=== PATIENT | male | born 1975 | race Caucasian/White ===

== ENCOUNTER → 2019-01-19 | Outpatient (CLI) | payer BC ==
[~2019-01-19] MED LIST: REGADENOSON 0.4 MG/5 ML DISP.SYRIN. IV ONE
--- NOTE | 2019-01-19 14:22 | PCVCIMAG ---
APPROVED REPORT Study performed: 01/19/2019 07:43:50 EXAM: Comprehensive 2D, Doppler, and color-flow Echocardiogram Patient Location: Echo lab Status: routine BSA: 2.29 HR: 60 bpmBP: 142/100 mmHg Rhythm: NSR Other Information Study Quality: Adequate Risk Factors: Cardiac Risk Factors: HTN Indications Palpitations Syncope 2D Dimensions IVSd: 12.22 (7-11mm) LVDd: 41.90 mm PWd: 10.94 (7-11mm)Ascending Ao: 29.07 (22-36mm) LVDs: 35.10 (25-40mm) Left Atrium: 38.57 (27-40mm) Aortic Root: 30.68 mm LV Single Plane 4CH: 52.68 % LV Single Plane 2CH: 53.73 % Biplane EF: 54.3 % Volumes Left Atrial Volume (Systole) Single Plane 4CH: 76.58 mLSingle Plane 2CH: 95.38 mL LA ESV Index: 38.00 mL/m2 Aortic Valve AoV Peak Angelo.: 1.56 m/s AO Peak Gr.: 9.67 mmHgLVOT Max P.40 mmHg LVOT Max V: 1.05 m/s Mitral Valve E/A Ratio: 1.4 MV Decel. Time: 237.92 ms MV E Max Angelo.: 0.80 m/s MV A Angelo.: 0.59 m/s IVRT: 93.43 ms Pulmonary Valve PV Peak Angelo.: 1.16 m/sPV Peak Gr.: 5.42 mmHg Pulmonary Vein P Vein S: 0.48 m/sP Vein A: 0.39 m/s P Vein D: 0.56 m/sP Vein A Dur.: 173.0 msec P Vein S/D Ratio: 0.86 Tricuspid Valve TR Peak Angelo.: 2.60 m/s TR Peak Gr.: 27.02 mmHg Left Ventricle The left ventricle is normal size. There is normal LV segmental wall motion. Borderline concentric left ventricular hypertrophy. Left ventricular systolic function is normal. The left ventricular ejection fraction is within the normal range. LVEF is 50-55%. Grade I - abnormal relaxation pattern. Right Ventricle The right ventricle is normal size. The right ventricular systolic function is normal. Atria Left atrium is mildly dilated. Right atrium is mildly dilated. Aortic Valve The aortic valve is normal in structure. No aortic regurgitation is present. There is no aortic valvular stenosis. Mitral Valve The mitral valve is normal in structure. Mild mitral regurgitation. No evidence of mitral valve stenosis. Tricuspid Valve The tricuspid valve is normal in structure. Mild tricuspid regurgitation with PAP of 34 mmHg. Pulmonic Valve The pulmonary valve is normal in structure. There is no pulmonic valvular regurgitation. Great Vessels The aortic root is normal in size. IVC is normal in size and collapses >50% with inspiration. Pericardium There is no pericardial effusion. There is no pleural effusion. <Conclusion> The left ventricle is normal size. LVEF is 50-55%. Left atrium is mildly dilated. Right atrium is mildly dilated. The aortic valve is normal in structure. The mitral valve is normal in structure. Mild mitral regurgitation. The tricuspid valve is normal in structure. Mild tricuspid regurgitation with PAP of 34 mmHg. The pulmonary valve is normal in structure. There is no pericardial effusion.
--- NOTE | 2019-01-20 15:11 | PCVCIMAG ---
APPROVED REPORT Imaging Protocol: Rest Tc-99m/Stress Tc-99m 1 day Study performed: 01/19/2019 09:15:49 Indication: Chest pain, Palpitations, Dyspnea, Syncope Patient Location: Out-Patient Stress Nurse: Supriya Hair RN, Nancy Mahan RN OR Tech:Dick SanchezLEOPOLDO Ht: 5 ft 11 in Wt: 244 lbs BSA: 2.29 m2 HR: 55 bpm BP: 131/94 mmHg BMI: 34.0 Rhythm: Sinus Bradycardia, Intraventricular Delay Medical History Medical History: HTN, Former Smoker Medications: HCTZ, Lisinopril, Protonix Allergies: No known drug allergies Exercise History: Indeterminate Physical Disabilities: Hips Resting Data Rest SPECT myocardial perfusion imaging was performed in supine position 45 minutes following the intravenous injection of 11.9 mCi of Tc-99m Sestamibi. Time of rest injection: 834 Date: 01/19/2019 Administration Route: IV Administration Site: Right AC Pharmacologic Stress Pharmacologic stress test was performed by injecting Regadenoson 0.4 mg IV push over 10-15 seconds immediately followed by the intravenous injection of 32.7 mCi of Tc-99m Sestamibi. Time of stress injection: 944 Date: 01/19/2019 Administration Route: IV Administration Site: Right AC Gated Stress SPECT was performed 45 minutes after stress injection. The images were gated to evaluate regional wall motion and calculate left ventricular ejection fraction. Stress Test Details Stress Test: Pharmacologic stress testing performed using 0.4 mg of regadenoson per 5 mL given IV over 10 seconds. Reason for pharmacologic stress test: Hip issues. HRMax Heart Rate (APMHR): 177 bpm Resting HR: 55 bpmTarget HR (85% APMHR): 150 bpm Max HR Achieved: 113 bpm % of APMHR: 63 Recovery HR: 83 bpm BP Resting BP: 131/94 mmHg Max BP: 193/105 mmHg Recovery BP: 164/88 mmHg ECG Resting ECG: Sinus Bradycardia, IVCD Stress ECG: Sinus Tachycardia, IVCD Arrhythmia: None Recovery ECG: Sinus Bradycardia, IVCD Clinical Reason for Termination: Completed protocol Stress Symptoms: Dyspnea Symptoms resolved with caffeine. Stress ECG Conclusion 1. Adequate response intravenous Lexiscan 2. Adequate heart rate for ECG diagnosis Study Data Post stress, the left ventricular ejection was 61%.. SSS: 1 SRS: 2 SDS: 0 TID = 1.10. Perfusion There is a medium area of moderately reduced uptake in the entire segment of the inferior wall which is seen on the stress images as well as the resting images. This area thickens and moves normally and is most consistent with attenuation artifact. Wall Motion Normal left ventricular wall motion. Nuclear Conclusion ECG Findings: non-diagnostic Clinical Findings: negative for ischemia Nuclear Findings: negative for ischemia Exercise Capacity: not assessed Left Ventricular Function: normal 1. Low risk study 2. Post exercise left ventricular ejection fraction of 61% with normal contractility Interpreted by: Rk Burnett MD Electronically Approved: 01/20/2019 15:10:45 <Conclusion> 1. Adequate response intravenous Lexiscan 2. Adequate heart rate for ECG diagnosis
== END | disposition home or self-care (01) ==
LOC: PCVCIMAG 08:09
PROVIDERS: ATTEND Internal Medicine
DX: I08.1 Rheumatic disorders of both mitral and tricuspid valves (principal); R00.2 Palpitations; R55 Syncope and collapse; E78.5 Hyperlipidemia, unspecified; Z87.891 Personal history of nicotine dependence
CPT/HCPCS: 78452; 93017; 93306; A9500; J2785